=== PATIENT | female | born 1935 | race Caucasian/White ===

== ENCOUNTER 2017-06-18 09:35 | Inpatient (IN) | payer MEDICARE, OTHER ==
[2017-06-18] VITALS (38 sets, daily range): BP systolic 113–176; BP diastolic 40–85; PULSE 44–94; RESP 13–23; Ht 147.3 cm; Wt 49.5 kg
[~2017-06-18] VITALS: Ht 147.3 cm; Wt 49.5 kg
[2017-06-18 09:52] LABS: BASOPHILS % 0.3 % (0.0-2.0); EOSINOPHILS # 0.1 10^3/ul (0.0-0.5); HEMOGLOBIN 10.8 g/dl (12.0-16.0); LYMPHOCYTES # 1.2 10^3/ul (0.8-2.9); LYMPHOCYTES % 16.2 % (15.0-51.0); MEAN CORPUSCULAR HEMOGLOBIN 33.1 pg (29.0-33.0); MEAN CORPUSCULAR HGB CONC 31.8 g/dl (32.0-37.0); MEAN CORPUSCULAR VOLUME 104.3 fl (82.0-101.0); MEAN PLATELET VOLUME 9.4 fl (7.4-10.4); MONOCYTE # 0.5 10^3/ul (0.3-0.9); MONOCYTES % 7.1 % (0.0-11.0); NEUTROPHIL # 5.4 10^3/ul (1.6-7.5); NEUTROPHILS % 75.1 % (39.0-77.0); PLATELET COUNT 266 10^3/UL (140-415); RED BLOOD COUNT 3.26 10^6/ul (4.20-5.40); RED CELL DISTRIBUTION WIDTH 13.9 % (11.5-14.5); WHITE BLOOD COUNT 7.2 10^3/ul (4.8-10.8)
[2017-06-18] MEDS ORDERED: IODIXANOL LOCM 100 ML BTL ONE (09:54)
[2017-06-18] MEDS ORDERED: SOD CHLORIDE 0.9% 100 ML ONE (09:54)
[2017-06-18] MEDS ORDERED: hydrALAzine 20 MG INJ IV ONE (10:00)
--- NOTE | 2017-06-18 10:00 | RADRPT ---
PROCEDURE: CT Brain. CLINICAL INDICATION: Stroke. TECHNIQUE: Multiple contiguous axial CT images of the brain were obtained without the administrati on of intravenous contrast. Coronal and sagittal reconstructions were also performed. DICOM images are available. CTDIvol (mGy): 43.04; Total Exam DLP (mGy-cm): 792.71. One or more of the following dose reduction techniques were utilized: - Automated exposure control. - Adjustment of the mA and/or kV according to patient size. - Use of iterative reconstruction technique. COMPARISON: None. FINDINGS: Age-related volume loss is observed. There is no mass effect or midline shift. There is a small 1.6 x 0.7 x 1.1 cm intraparenchymal hemorrhage within the left basal ganglia and internal capsule most compatible with a small hemorrhagic stroke. The mancuso-white matter differentiation is otherwise pres erved. Mild moderate periventricular hypoattenuation is present and favorable for sequelae of small vessel ischemic changes. The posterior fossa is unremarkable. Intracranial vascular calcifications a re observed. The paranasal sinuses and mastoid air cells are clear. The calvarium is intact. Extracalvarial sof t tissues are unremarkable. IMPRESSION: Small hemorrhagic stroke of the left basal ganglia/internal capsule. Age-related volume loss and small vessel ischemic changes. Critical results: Imaging findings discussed with Dr. Isbell at 0956 hours. RPTAT: HLST .Nabila Lopez MD, MD Date Time Electronically viewed and signed by .Nabila Lopez MD, MD on 06/18/2017 10:00 .T/
[2017-06-18 10:11] LABS: ALBUMIN 2.2 g/dl (3.3-4.9); ALBUMIN/GLOBULIN RATIO 0.66; BILIRUBIN,INDIRECT 0.2 mg/dl (0-1.1); BILIRUBIN,TOTAL 0.2 mg/dl (0.2-1.3); CALCIUM 8.2 mg/dl (8.4-10.2); CREATININE 1.19 mg/dl (0.44-1.00); POTASSIUM 4.6 mmol/L (3.5-5.1); TOTAL PROTEIN 5.5 g/dl (6.1-8.1)
--- NOTE | 2017-06-18 10:15 | STROKE ---
Date/Time of Note Date/Time of Note DATE: 06/18/17 TIME: 12:14 Patient Information General Arrival Date Age 81 Gender female Weight 50 kg Vital Signs Vital Signs Vital Signs Date Time Temp Pulse Resp B/P Pulse Ox O2 Delivery O2 Flow Rate FiO2 06/18/17 10:12 77 17 165/68 100 Room Air Labs Hematology Labs Hematology Test 06/18/17 09:40 White Blood Count 7.210^3/ul (4.8-10.8) Red Blood Count 3.2610^6/ul (4.20-5.40) Hemoglobin 10.8g/dl (12.0-16.0) Hematocrit 34.0% (37.0-47.0) Mean Corpuscular Volume 104.3fl (82.0-101.0) Mean Corpuscular Hemoglobin 33.1pg (29.0-33.0) Mean Corpuscular Hemoglobin Concent 31.8g/dl (32.0-37.0) Red Cell Distribution Width 13.9% (11.5-14.5) Platelet Count 04148^3/UL (140-415) Mean Platelet Volume 9.4fl (7.4-10.4) Neutrophils % 75.1% (39.0-77.0) Lymphocytes % 16.2% (15.0-51.0) Monocytes % 7.1% (0.0-11.0) Eosinophils % 1.0% (0.0-7.0) Basophils % 0.3% (0.0-2.0) Nucleated Red Blood Cells % 0.0/100WBC (0.0-0.0) Neutrophils # 5.410^3/ul (1.6-7.5) Lymphocytes # 1.210^3/ul (0.8-2.9) Monocytes # 0.510^3/ul (0.3-0.9) Eosinophils # 0.110^3/ul (0.0-0.5) Basophils # 0.010^3/ul (0.0-0.1) Nucleated Red Blood Cells # 0.010^3/ul (0.0-0.0) Chemistry Labs Chemistry Test 06/18/17 09:40 Sodium Level 142mmol/L (135-144) Potassium Level 4.6mmol/L (3.5-5.1) Chloride Level 114mmol/L (97-110) Carbon Dioxide Level 25mmol/L (21-31) Anion Gap 8 (8-16) Blood Urea Nitrogen 32mg/dl (7-20) Creatinine 1.19mg/dl (0.44-1.00) Glucose Level 94mg/dl (70-220) Calcium Level 8.2mg/dl (8.4-10.2) Total Bilirubin 0.2mg/dl (0.2-1.3) Direct Bilirubin 0.00mg/dl (0.00-0.20) Indirect Bilirubin 0.2mg/dl (0-1.1) Aspartate Amino Transf (AST/SGOT) 20IU/L (15-46) Alanine Aminotransferase (ALT/SGPT) 27IU/L (13-69) Alkaline Phosphatase 163IU/L (42-121) Creatine Kinase 101IU/L (23-200) Total Protein 5.5g/dl (6.1-8.1) Albumin 2.2g/dl (3.3-4.9) Globulin 3.30g/dl (1.3-3.2) Albumin/Globulin Ratio 0.66 Triglycerides Level 103mg/dl (0-149) Cholesterol Level 94mg/dl (100-200) LDL Cholesterol, Calculated 28mg/dl HDL Cholesterol 45mg/dl (33-92) Cholesterol/HDL Ratio 2.0RATIO History & Physical History of Present Illness 81 W LKW 0750 PST PMH ESRD, HTN with weakness and slurred speech that daughter noticed at 0750 PST. In ED noted to have R hemiparesis and dysarthria. NCHCT showing small L BG IPH. NIH Stroke Scale NIH Stroke Scale Date/Time Recorded DATE: 06/18/17 TIME: 12:14 Submitted By Yash Coon t-PA Imaging Review Date/Time Imaging Reviewed DATE: 06/18/17 TIME: 12:14 t-PA Administration Weight 50 kg Recommedation submitted by Yash Coon Recommendations Impression Diagnosis 81 YO W with acute L basal ganglia IPH. I updated her daughter Romelia at bedside and informed her that NS will be consulted. Recommendation - Agree with NS consultation for acute IPH - Agree with acute goal SBP 140 YASH COON MD Jun 18, 2017 10:15
--- NOTE | 2017-06-18 10:20 | RADRPT ---
PROCEDURE: Chest x-ray CLINICAL INDICATION: Stroke TECHNIQUE: Chest single view COMPARISON: None FINDINGS: There is mild cardiomegaly and moderate atherosclerotic aortic calcification. Mild interstitial vasc ular congestion seen. No confluent pneumonias identified. Costophrenic angles are sharp. IMPRESSION: 1. Cardiomegaly with mild interstitial CHF. 2. Atherosclerotic aortic calcification RPTAT: HH .Gonsalo Peres MD, MD Date Time Electronically viewed and signed by .Gonsalo Peres MD, on 06/18/2017 10:20 .W/
[2017-06-18 10:21] LABS: CK-MB 1.61 ng/ml (0.0-2.4); TROPONIN-I 0.034 ng/ml (0.00-0.12)
[2017-06-18 10:22] LABS: INR 1.07; PROTIME 13.9 Sec (12.2-14.2); PT RATIO 1.1
[2017-06-18 10:23] LABS: PARTIAL THROMBOPLASTIN TIME 34.9 Sec (25.0-35.0)
--- NOTE | 2017-06-18 10:25 | RADRPT ---
PROCEDURE: CTA BRAIN WITH CONTRAST, CTA NECK WITH CONTRAST CLINICAL INDICATION: Neurologic deficit, Stroke COMPARISON: Correlation head CT earlier today TECHNIQUE: Helical axial images were obtained through the neck and head with contrast. Oblique sagittal MIP pat ges were obtained through the neck, and coronal and sagittal MIP images were obtained through the br ain. Additional 3D volumetric renderings were created. 100 cc of Isovue 370 was administered intra venously without reported complication. One or more of the following dose reduction techniques were used: Automated exposure control, Adjustment of the mA and/or kV according to patient size, and/or u se of iterative reconstruction technique. DICOM images are available. DOSE: CTDI = 18/11mGy and the DLP = 421mGy-cm. FINDINGS: CTA OF THE BRAIN: No evidence of a significant stenosis of the bilateral ICA, KATHE, MCA, or CAKE TESTER vesse ls. The bilateral vertebral and basilar arteries are without significant stenosis or occlusion. Left vertebral artery is hypoplastic. 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 2 x 2 mm posterior projecting aneurysm from the supraclinoid left internal carotid artery. Left lentiform nucleus parenchymal hemorrhage again noted. CTA OF THE NECK: No evidence of a hemodynamically-significant stenosis or vessel dissection of the b ilateral common carotid, bilateral internal carotid, or bilateral vertebral arteries. Right vertebra l artery is dominant. Degenerative changes of the spine. IMPRESSION: CTA HEAD: Patent intracranial arteries. No large vessel occlusion identified. 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 2 x 2 mm posterior projecting aneurysm from the supraclinoid left internal carotid artery. Left lentiform nucleus parenchymal hemorrhage again noted. CTA NECK: Patent major cervical arteries. No significant internal carotid arterial stenosis by NASCET criteria. RPTAT: AA .Darion Rodriguez MD, MD Date Time Electronically viewed and signed by .Darion Rodriguez MD, MD on 06/18/2017 10:25 .T/
[2017-06-18] MEDS ORDERED: DICY10CA60 PO (10:37)
[2017-06-18] MEDS ORDERED: CLON1PAT2 TD (10:38)
[2017-06-18] MEDS ORDERED: ENAL20TA PO (10:38)
[2017-06-18] MEDS ORDERED: POTA-57 PO (10:40)
[2017-06-18] MEDS ORDERED: OMEP20CA16 PO (10:40)
[2017-06-18] MEDS ORDERED: FURO20TA3 PO (10:40)
[2017-06-18] MEDS ORDERED: SIMV40TA2 PO (10:41)
[2017-06-18] MEDS ORDERED: LORA10TA3 PO (10:41)
[2017-06-18] MEDS ORDERED: TYL500 PO (10:41)
[2017-06-18] MEDS ORDERED: CYAN100 PO (10:42)
[2017-06-18] MEDS ORDERED: CARV12.579 PO (10:42)
[2017-06-18] MEDS ORDERED: AMLO5TAB4 PO (10:42)
[2017-06-18] MEDS ORDERED: FER325 PO (10:42)
[2017-06-18] MEDS ORDERED: EPOE10002 IJ (10:43)
--- NOTE | 2017-06-18 11:15 | RADRPT ---
PROCEDURE: CTA BRAIN WITH CONTRAST, CTA NECK WITH CONTRAST CLINICAL INDICATION: Neurologic deficit, Stroke COMPARISON: Correlation head CT earlier today TECHNIQUE: Helical axial images were obtained through the neck and head with contrast. Oblique sagittal MIP pat ges were obtained through the neck, and coronal and sagittal MIP images were obtained through the br ain. Additional 3D volumetric renderings were created. 100 cc of Isovue 370 was administered intrave nously without reported complication. One or more of the following dose reduction techniques were us ed: Automated exposure control, Adjustment of the mA and/or kV according to patient size, and/or use of iterative reconstruction technique. DICOM images are available. DOSE: CTDI = 18/11mGy and the DLP = 421mGy-cm. FINDINGS: CTA OF THE BRAIN: No evidence of a significant stenosis of the bilateral ICA, KATHE, MCA, or TANK[employer] WORKER vesse ls. The bilateral vertebral and basilar arteries are without significant stenosis or occlusion. Left vertebral artery is hypoplastic. 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 2 x 2 mm posterior projecting aneurysm from the supraclinoid left internal carotid artery. Left lentiform nucleus parenchymal hemorrhage again noted. CTA OF THE NECK: No evidence of a hemodynamically-significant stenosis or vessel dissection of the b ilateral common carotid, bilateral internal carotid, or bilateral vertebral arteries. Right vertebra l artery is dominant. Degenerative changes of the spine. IMPRESSION: CTA HEAD: Patent intracranial arteries. No large vessel occlusion identified. 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 2 x 2 mm posterior projecting aneurysm from the supraclinoid left internal carotid artery. Left lentiform nucleus parenchymal hemorrhage again noted. CTA NECK: Patent major cervical arteries. No significant internal carotid arterial stenosis by NASCET criteria. RPTAT: AA .Darion Rodriguez MD, MD Date Time Electronically viewed and signed by .Darion Rodriguez MD, MD on 06/18/2017 11:14 .T/
--- NOTE | 2017-06-18 11:28 | ERD ---
ER Documentation Chief Complaint Chief Complaint BIB RA FOR EVAL OF RT SIDED WEAKNESS AND SLURRED SPEECH @ 0750 HPI History obtained from patient's daughter as patient is unable to give a detailed history secondary to her clinical condition at this time. This is an 81-year-old female who presents to the emergency room after being brought in by ambulance for evaluation of right-sided weakness and slurred speech. According to the patient's daughter this patient started having slurred speech around 7: 15 AM this morning. She states that she called her mother and noted that she has slurred speech. She states that she was with her mother 1 hour previously and noted that she was acting normally. This patient does have a history of hypertension, hyperlipidemia. Daughter states that she noticed a droop on the right side of the patient's face. The patient was brought in for further evaluation. ROS All systems reviewed and are negative except as per history of present illness. Medications Home Meds Reported Medications Epoetin Chito (Procrit) 10,000 Unit/1 Ml Vial, 99390 UNIT IJ WEEKLY, VIAL 06/18/17 Ferrous Sulfate* (Ferrous Sulfate*) 325 Mg Tabec, 325 MG PO BID, TAB 06/18/17 Amlodipine Besylate* (Norvasc*) 5 Mg Tablet, 5 MG PO DAILY, TAB 06/18/17 Carvedilol* (Carvedilol*) 12.5 Mg Tablet, 12.5 MG PO BID, #60 TAB 06/18/17 Cyanocobalamin* (Vitamin B12*) 100 Mcg Tab, 100 MCG PO DAILY, TAB 06/18/17 Simvastatin* (Zocor*) 40 Mg Tablet, 40 MG PO QHS, #30 TAB 06/18/17 Acetaminophen* (Tylenol*) 500 Mg Tab, 500 MG PO Q4H Y for MILD PAIN LEVEL 1-3, TAB 06/18/17 Loratadine* (Loratadine*) 10 Mg Tablet, 10 MG PO DAILY, #30 TAB 06/18/17 Omeprazole* (Omeprazole*) 20 Mg Capsule.dr, 20 MG PO AC BREAKFAST, #30 CAP 06/18/17 Furosemide* (Furosemide*) 20 Mg Tablet, 20 MG PO DAILY Y for LEG SWELLING, #60 TAB 06/18/17 Potassium Chloride* (Klor-Con*) 20 Meq Tabsr, 10 MEQ PO DAILY Y for SWELLING OF LEGS, TAB.SA 06/18/17 Enalapril Maleate* (Enalapril Maleate*) 20 Mg Tablet, 20 MG PO BID, TAB HOLD FOR SBP LESS THAN 110 AND PULSE RATE LESS THAN 52 06/18/17 Clonidine Patch (CLONIDINE PATCH) 0.2 Mg/24 Hr Patch, 1 PATCH.WK TD Q7D, #4 PATCH.WK 06/18/17 Dicyclomine Hcl* (Bentyl*) 10 Mg Capsule, 20 MG PO BID, CAP 06/18/17 Allergies Allergies: Coded Allergies: No Known Allergy (Unverified , 06/18/17) PMhx/Soc History of Surgery: Yes (EYE SURGERY , GALL BLADDER , MAC DEGENERATION ) Hx Cardiac Disorders: Yes (HTN , CHOLESTEROL ) Hx Miscellaneous Medical Probl: Yes (ANEMIA, GERD , CKD) Hx Alcohol Use: No Hx Substance Use: No Smoking Status: Never smoker Physical Exam Vitals Vital Signs Date Time Temp Pulse Resp B/P Pulse Ox O2 Delivery O2 Flow Rate FiO2 06/18/17 10:56 81 17 159/59 97 Room Air 06/18/17 10:43 83 18 161/59 99 Room Air 06/18/17 10:14 156/71 06/18/17 10:12 77 17 165/68 100 Room Air 06/18/17 09:50 82 17 150/121 99 Room Air 06/18/17 09:35 79 16 189/141 99 Physical Exam INITIAL VITAL SIGNS: Reviewed by me GENERAL: The patient is well developed and appropriate for usual state of health in no apparent distress HEENT: Pupils equal, round, and reactive to light. EOMI. There is no scleral icterus. NECK: C-spine is soft and supple, there is no meningismus. There is no cervical lymphadenopathy. LUNGS: Clear to auscultation bilaterally. There are no rales, wheezes or rhonchi. HEART: Regular rate and rhythm, no murmurs, clicks, rubs or gallops. ABDOMEN: Soft, non-tender, non-distended. There are bowel sounds in all four quadrants. No rebound or guarding. EXTREMITIES: There is no peripheral cyanosis or edema. No focal swelling or erythema. NEUROLOGICAL: Right-sided facial droop, right upper extremity 2 out of 5 strength, left upper extremity 5 out of 5 strength, right lower extremity 3 out of 5 strength, left lower extremity 5 out of 5 strength, positive slurred speech SKIN: There is no apparent rash or petechiae. HEME/LYMPHATIC: There is no evidence of excessive bruising or lymphedema. PSYCHIATRIC: The patient does not appear anxious or depressed. Result Diagram: 06/18/1740 06/18/1740 Results 24 hrs Laboratory Tests Test 06/18/17 09:40 White Blood Count 7.210^3/ul Red Blood Count 3.2610^6/ul Hemoglobin 10.8g/dl Hematocrit 34.0% Mean Corpuscular Volume 104.3fl Mean Corpuscular Hemoglobin 33.1pg Mean Corpuscular Hemoglobin Concent 31.8g/dl Red Cell Distribution Width 13.9% Platelet Count 82511^3/UL Mean Platelet Volume 9.4fl Neutrophils % 75.1% Lymphocytes % 16.2% Monocytes % 7.1% Eosinophils % 1.0% Basophils % 0.3% Nucleated Red Blood Cells % 0.0/100WBC Neutrophils # 5.410^3/ul Lymphocytes # 1.210^3/ul Monocytes # 0.510^3/ul Eosinophils # 0.110^3/ul Basophils # 0.010^3/ul Nucleated Red Blood Cells # 0.010^3/ul Prothrombin Time 13.9Sec Prothrombin Time Ratio 1.1 INR International Normalized Ratio 1.07 Activated Partial Thromboplast Time 34.9Sec Sodium Level 142mmol/L Potassium Level 4.6mmol/L Chloride Level 114mmol/L Carbon Dioxide Level 25mmol/L Anion Gap 8 Blood Urea Nitrogen 32mg/dl Creatinine 1.19mg/dl Glucose Level 94mg/dl Hemoglobin A1c 4.5% Calcium Level 8.2mg/dl Total Bilirubin 0.2mg/dl Direct Bilirubin 0.00mg/dl Indirect Bilirubin 0.2mg/dl Aspartate Amino Transf (AST/SGOT) 20IU/L Alanine Aminotransferase (ALT/SGPT) 27IU/L Alkaline Phosphatase 163IU/L Creatine Kinase 101IU/L Creatine Kinase Index 1.6 Creatinine Kinase MB (Mass) 1.61ng/ml Troponin I 0.034ng/ml Total Protein 5.5g/dl Albumin 2.2g/dl Globulin 3.30g/dl Albumin/Globulin Ratio 0.66 Triglycerides Level 103mg/dl Cholesterol Level 94mg/dl LDL Cholesterol, Calculated 28mg/dl HDL Cholesterol 45mg/dl Cholesterol/HDL Ratio 2.0RATIO Current Medications Medications (Trade) Dose Ordered Sig/Pavan Route PRN Reason Start Time Stop Time Status Last Admin Dose Admin IV Flush 10 ml 10 ml STK-MED ONCE .ROUTE 06/18/17 09:54 06/18/17 09:55 DC 06/18/17 10:03 Sodium Chloride (NS) 100 ml @ ud STK-MED ONCE .ROUTE 06/18/17 09:54 06/18/17 09:55 DC 06/18/17 10:04 Iodixanol (Visipaque Locm) 100 ml STK-MED ONCE .ROUTE 06/18/17 09:54 06/18/17 09:55 DC 06/18/17 10:03 Hydralazine HCl 10 mg 10 mg ONCE ONCE IV 06/18/17 10:00 06/18/17 10:01 DC 06/18/17 10:25 Sodium Chloride (NS) 1,000 ml @ 60 mls/hr [id number] IV 06/18/17 11:30 Hydralazine HCl (Apresoline) 10 mg Q6H PRN IV sbp>140mmhg 06/18/17 11:30 Ondansetron HCl (Zofran Inj) 4 mg Q6H PRN IV NAUSEA AND/OR VOMITING 06/18/17 11:30 Morphine Sulfate (morphine) 2 mg Q4H PRN IV pain 06/18/17 11:30 Famotidine (Pepcid Iv) 20 mg DAILY IV 06/19/17 09:00 Procedures/MDM EKG: Rate/Rhythm: [Normal Sinus Rhythm] QRS, ST, T-waves: [No changes consistent w/ acute ischemia] Impression: [No evidence of ischemia or arrhythmia] Chest X-ray 1V Interpreted by me: Soft Tissue: No acute abnormalities Bones: No acute abnormalities Mediastinum/Cardiac Silhouette/Lungs: [No acute abnormalities] CT brain without: Small hemorrhagic stroke of the left basal ganglia/internal capsule. Age-related volume loss and small vessel ischemic changes. CTA neck and brain:CTA HEAD: Patent intracranial arteries. No large vessel occlusion identified. 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 2 x 2 mm posterior projecting aneurysm from the supraclinoid left internal carotid artery. Left lentiform nucleus parenchymal hemorrhage again noted. CTA NECK: Patent major cervical arteries. No significant internal carotid arterial stenosis by NASCET criteria. This 81-year-old female presents to the ER for evaluation of altered mental status, slurred speech and right-sided weakness. This patient was in a timeframe to receive TPA and a code stroke was called. This patient went to CT and was found to have a hemorrhagic stroke. I did order a CT angiography of the brain and patella neurology who agrees this patient is not a TPA candidate. I did contact neurosurgery director of personnel, Dr. Gray. He agrees to evaluate this patient. This patient did have a blood pressure with a systolic greater than 180. He did recommend a systolic blood pressure control less than 160. This patient did get 10 mg of hydralazine. Her blood pressure is controlled at this time at 142/74. This patient will be placed in for admission at this time for repeat CT of the brain to rule out any expanding bleeding. This patient in this patient's family are aware of her condition. She will be placed in the intensive care unit at this time under the care of Dr. Owens. This patient presented to the emergency room at 0936 Code stroke was called at 0937 Spoke with tele- neurology at [address] Gray 1020 Critical Care: Excluding all billable procedures Time: 48 minutes Treatments/Evaluations: Close monitoring and treatment of unstable vital signs, cardiorespiratory, and neurologic status, while maintaining tight balance of fluid, respiratory, and cardiac interventions. Departure Diagnosis: Primary Impression: Hemorrhagic stroke Additional Impressions: Acute weakness Macrocytic anemia Renal insufficiency Hypertension, uncontrolled Condition: Serious RASHAD HURLEY DO Jun 18, 2017 11:28
[2017-06-18] MEDS ORDERED: morphine 2 MG INJ IV PRN (11:30)
[2017-06-18] MEDS ORDERED: ONDANSETRON 4 MG INJ IV PRN (11:30)
[2017-06-18] MEDS ORDERED: niCARdipine-NS 0.1MG/ML DRIP 200 ML IV SCH ×2 (13:30→16:00)
[2017-06-18] MEDS: hydrALAzine 20 MG INJ IV PRN (13:46)
[2017-06-18] MEDS: SOD CHLORIDE 0.9% 1,000 ML IV SCH (13:46)
[2017-06-18] MEDS ORDERED: FUROSEMIDE 20 MG INJ IV ONE (15:00)
[2017-06-18 15:02] LABS: ADD UMIC YES; UR ASCORBIC ACID NEGATIVE (NEGATIVE); UR BILIRUBIN (Dip) NEGATIVE (NEGATIVE); UR BLOOD (Dip) 1+ mg/dL (NEGATIVE); UR CLARITY CLEAR (CLEAR); UR COLOR YELLOW (YELLOW); UR GLUCOSE (Dip) NEGATIVE (NEGATIVE); UR KETONES (Dip) NEGATIVE (NEGATIVE); UR LEUKOCYTE ESTERASE (Dip) NEGATIVE Leu/ul (NEGATIVE); UR NITRITE (Dip) NEGATIVE (NEGATIVE); UR RBC 4 /HPF (0-5); UR SPECIFIC GRAVITY (Dip) 1.042 (1.003-1.030); UR TOTAL PROTEIN (Dip) 3+ mg/dl (NEGATIVE); UR UROBILINOGEN (Dip) NEGATIVE (NEGATIVE)
--- NOTE | 2017-06-18 15:03 | HP ---
Date/Time of Note Date/Time of Note DATE: 06/18/17 TIME: 14:42 Assessment/Plan VTE Prophylaxis VTE Prophylaxis Intervention: SCD's VTE Contraindication Reason: hemorrhagic cerebral infarction Lines/Catheters IV [facility]ter Type (from [facility]): Saline Lock Urinary Cath still in place: No Assessment/Plan Assessment/Plan 81 yo F with 1. Acute left hemorrhagic basal ganglia CVA 2. Hypertension with suboptimal control [hypertensive emergency] 3. History of dyslipidemia PLAN: Patient admitted to intensive care unit for close monitoring and management Strict blood pressure monitoring with goal systolic blood pressure of 140 or less Neurosurgical as well as neurology consultations have been obtained. We discussed aneurysms seen on CTA of the head with neurosurgery and these are thought to be incidental findings which is recommended to follow-up outpatient with interventional neurologist/neurosurgeon. N.p.o. for now until speech therapy evaluation Close ICU monitoring and supportive care Further interventions per clinical course Clinical care time greater than 1 hour. HPI/ROS Admit Date/Time Admit Date/Time Jun 18, 2017 at 11:05 Hx of Present Illness This is an 81-year-old female who was brought into the emergency room today via ambulance because of new onset right-sided weakness and slurred speech as well as deviation of the angle of her mouth to the right. Periparotid the patient started having symptoms at about 715 this morning and prior to an hour prior to that patient was said to have been normal. Emergency room evaluation revealed the presence of a left basal ganglia hemorrhagic stroke on CT scan of the brain and the patient is being admitted to the intensive care unit for further monitoring and management. No other history is unobtainable at this time because of the patient's slurred speech and mild aphasia. ROS unable to obtain d/t patient's condition. PMH/Family/Social Past Medical History * HTN * HLD Past Surgical History Past Surgical Hx: cholecystectomy Family History Significant Family History: other (unknown) Social History Smoking Status: Former smoker Exam/Review of Systems Vital Signs Vitals Vital Signs Date Time Temp Pulse Resp B/P Pulse Ox O2 Delivery O2 Flow Rate FiO2 06/18/17 13:00 84 06/18/17 12:15 13 129/54 100 Room Air Exam Constitutional: alert, No distress Head: normocephalic Eyes: PERRL, No icteric ENMT: mucosa pink and moist, No intubated Neck: supple Respiratory: clear to auscultation, diminished breath sounds Cardiovascular: nl pulses, regular rate and rhythm, No murmurs/extra sounds Gastrointestinal: bowel sounds, non-tender, soft Neurological: No confused, No focal weakness, No nl speech Skin: No rash or lesions Labs Result Diagram: 06/18/17 0940 06/18/17 0940 Medications Medications Current Medications Sodium Chloride (NS) 1,000 ml @ 60 mls/hr [id number] IV Last administered on 13:46; Admin Dose 60 MLS/HR; Start 06/18/17 at 11:30 Hydralazine HCl (Apresoline) 10 mg Q6H PRN IV sbp>140mmhg Last administered on 06/18/17 13:46; Admin Dose 10 MG; Start 06/18/17 at 11:30 Ondansetron HCl (Zofran Inj) 4 mg Q6H PRN IV NAUSEA AND/OR VOMITING; Start at 11:30 Morphine Sulfate (morphine) 2 mg Q4H PRN IV pain; Start 06/18/17 at 11:30 Famotidine 20 mg 20 mg DAILY IV ; Start 06/19/17 at 09:00 Nicardipine HCl (Cardene Iv) 200 ml @ 50 mls/hr TITRATE IV ; Start 06/18/17 at 13:30 Procedures Procedures PROCEDURE: Chest x-ray CLINICAL INDICATION: Stroke TECHNIQUE: Chest single view COMPARISON: None FINDINGS: There is mild cardiomegaly and moderate atherosclerotic aortic calcification. Mild interstitial vascular congestion seen. No confluent pneumonias identified. Costophrenic angles are sharp. IMPRESSION: 1. Cardiomegaly with mild interstitial CHF. 2. Atherosclerotic aortic calcification RPTAT: HH .Gonsalo Peres MD, MD Date Time Electronically viewed and signed by .Gonsalo Peres MD, MD on 06/18/2017 10:20 .W/ CC: RASHAD HURLEY DO PROCEDURE: CT Brain. CLINICAL INDICATION: Stroke. TECHNIQUE: Multiple contiguous axial CT images of the brain were obtained without the administration of intravenous contrast. Coronal and sagittal reconstructions were also performed. DICOM images are available. CTDIvol (mGy) : 43.04; Total Exam DLP (mGy-cm): 792.71. One or more of the following dose reduction techniques were utilized: - Automated exposure control. - Adjustment of the mA and/or kV according to patient size. - Use of iterative reconstruction technique. COMPARISON: None. FINDINGS: Age-related volume loss is observed. There is no mass effect or midline shift. There is a small 1.6 x 0.7 x 1.1 cm intraparenchymal hemorrhage within the left basal ganglia and internal capsule most compatible with a small hemorrhagic stroke. The mancuso-white matter differentiation is otherwise preserved. Mild moderate periventricular hypoattenuation is present and favorable for sequelae of small vessel ischemic changes. The posterior fossa is unremarkable. Intracranial vascular calcifications are observed. The paranasal sinuses and mastoid air cells are clear. The calvarium is intact. Extracalvarial soft tissues are unremarkable. IMPRESSION: Small hemorrhagic stroke of the left basal ganglia/internal capsule. Age-related volume loss and small vessel ischemic changes. Critical results: Imaging findings discussed with Dr. Hurley at 0956 hours. RPTAT: HLST .Nabila Lopez MD, Date Time Electronically viewed and signed by .Nabila Lopez MD, MD on 06/18/2017 10:00 .T/ CC: RASHAD HURLEY DO PROCEDURE: CTA BRAIN WITH CONTRAST, CTA NECK WITH CONTRAST CLINICAL INDICATION: Neurologic deficit, Stroke COMPARISON: Correlation head CT earlier today TECHNIQUE: Helical axial images were obtained through the neck and head with contrast. Oblique sagittal MIP images were obtained through the neck, and coronal and sagittal MIP images were obtained through the brain. Additional 3D volumetric renderings were created. 100 cc of Isovue 370 was administered intravenously without reported complication. One or more of the following dose reduction techniques were used: Automated exposure control, Adjustment of the mA and/or kV according to patient size, and/or use of iterative reconstruction technique. DICOM images are available. DOSE: CTDI = 18/11mGy and the DLP = 421mGy-cm. FINDINGS: CTA OF THE BRAIN: No evidence of a significant stenosis of the bilateral ICA, KATHE, MCA, or MEDICAL RECORDS SUPERVISOR vessels. The bilateral vertebral and basilar arteries are without significant stenosis or occlusion. Left vertebral artery is hypoplastic. 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 2 x 2 mm posterior projecting aneurysm from the supraclinoid left internal carotid artery. Left lentiform nucleus parenchymal hemorrhage again noted. CTA OF THE NECK: No evidence of a hemodynamically-significant stenosis or vessel dissection of the bilateral common carotid, bilateral internal carotid, or bilateral vertebral arteries. Right vertebral artery is dominant. Degenerative changes of the spine. IMPRESSION: CTA HEAD: Patent intracranial arteries. No large vessel occlusion identified. 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 2 x 2 mm posterior projecting aneurysm from the supraclinoid left internal carotid artery. Left lentiform nucleus parenchymal hemorrhage again noted. CTA NECK: Patent major cervical arteries. No significant internal carotid arterial stenosis by NASCET criteria. RPTAT: AA .Darion Rodriguez MD, MD Date Time Electronically viewed and signed by .Darion Rodriguez MD, MD on 06/18/2017 10:25 .Radha/ CLEM ORMANO Jun 18, 2017 15:00
[2017-06-18 15:58] LABS: BARBITURATES Negative (NEGATIVE); BENZODIAZEPINES Negative (NEGATIVE); CANNABINOIDS Negative (NEGATIVE); COCAINE Negative (NEGATIVE); OPIATES Negative (NEGATIVE)
--- NOTE | 2017-06-18 20:44 | RADRPT ---
PROCEDURE: CT Brain without contrast. CLINICAL INDICATION: Intraparenchymal hematoma, headache TECHNIQUE: Routine CT scan of the brain was performed on a high resolution multi detector scanner without intravenous contrast. One or more of the following dose reduction techniques were used: Auto mated exposure control; Adjustment of the mA and/or kV according to patient size; Use of iterative r econstruction technique. CTDI = 44 mGy. DLP = 630 mGy-cm. DICOM images are available. COMPARISON: No prior relevant examinations are available for comparison. FINDINGS: Hemorrhage: 14 mm acute intraparenchymal hematoma centered within the left lentiform nucleus is unch anged. No new areas of hemorrhage are seen. Acute ischemic changes: No evidence of acute ischemic changes. Mass effect: None. Parenchymal volume: Within normal limits for age. Ventricular system: Concordant with parenchymal volume. Chronic changes: There are multiple areas of low attenuation change within the supratentorial white matter most compatible with moderate chronic microvascular ischemic changes. Atherosclerotic calcifications of the cavernous portions of both internal carotid arteries are prese nt. Extracranial soft tissues: Unremarkable. Calvarium: No fractures. Paranasal sinuses: Visualized paranasal sinuses are clear. Mastoid air cells: Visualized mastoid air cells are clear. IMPRESSION: Unchanged 14 mm acute intraparenchymal hematoma within the left lentiform nucleus. No new areas of h emorrhage. Moderate chronic-appearing microvascular ischemic changes of the supratentorial white matter are unc hanged. RPTAT: AADD .Zack Young MD, MD Date Time Electronically viewed and signed by .Zack Young MD, on 06/18/2017 20:43 .B/
[2017-06-19] VITALS (35 sets, daily range): BP systolic 126–174; BP diastolic 53–117; PULSE 69–95; RESP 11–24
[2017-06-19] MEDS: hydrALAzine 20 MG INJ IV PRN ×3 (01:37→17:23)
[2017-06-19] MEDS: SOD CHLORIDE 0.9% 1,000 ML IV SCH (05:02)
[2017-06-19 05:42] LABS: BASOPHILS % 0.3 % (0.0-2.0); EOSINOPHILS # 0.1 10^3/ul (0.0-0.5); HEMATOCRIT 30.9 % (37.0-47.0); HEMOGLOBIN 9.8 g/dl (12.0-16.0); LYMPHOCYTES # 1.3 10^3/ul (0.8-2.9); LYMPHOCYTES % 21.3 % (15.0-51.0); MEAN CORPUSCULAR HEMOGLOBIN 32.9 pg (29.0-33.0); MEAN CORPUSCULAR HGB CONC 31.7 g/dl (32.0-37.0); MEAN CORPUSCULAR VOLUME 103.7 fl (82.0-101.0); MEAN PLATELET VOLUME 9.7 fl (7.4-10.4); MONOCYTE # 0.5 10^3/ul (0.3-0.9); MONOCYTES % 7.2 % (0.0-11.0); NEUTROPHIL # 4.3 10^3/ul (1.6-7.5); NEUTROPHILS % 69.9 % (39.0-77.0); PLATELET COUNT 249 10^3/UL (140-415); RED BLOOD COUNT 2.98 10^6/ul (4.20-5.40); RED CELL DISTRIBUTION WIDTH 14.1 % (11.5-14.5); WHITE BLOOD COUNT 6.2 10^3/ul (4.8-10.8)
[2017-06-19 06:12] LABS: INR 1.14; PROTIME 14.6 Sec (12.2-14.2); PT RATIO 1.1
[2017-06-19 06:13] LABS: PARTIAL THROMBOPLASTIN TIME 34.3 Sec (25.0-35.0)
[2017-06-19 06:28] LABS: ALBUMIN 1.8 g/dl (3.3-4.9); BILIRUBIN,INDIRECT 0.2 mg/dl (0-1.1); BILIRUBIN,TOTAL 0.2 mg/dl (0.2-1.3); CALCIUM 7.8 mg/dl (8.4-10.2); CHOL/HDL RATIO 2.2 RATIO; CREATININE 1.19 mg/dl (0.44-1.00); MAGNESIUM 1.8 mg/dl (1.7-2.5); POTASSIUM 3.2 mmol/L (3.5-5.1); TOTAL PROTEIN 4.8 g/dl (6.1-8.1)
[2017-06-19 06:42] LABS: THYROID STIMULATING HORMONE 8.86 MIU/L (0.465-4.680)
[2017-06-19] MEDS ORDERED: MAGNESIUM SULFATE 1 GM/D5W 100 ML IVPB ONE (07:30)
[2017-06-19] MEDS: FAMOTIDINE 20 MG INJ IV SCH (10:05)
--- NOTE | 2017-06-19 10:23 | PN ---
CLEM ROMANO 06/19/17 1023: Date/Time of Note Date/Time of Note DATE: 06/19/17 TIME: 10:14 Assessment/Plan Lines/Catheters IV Catheter Type (from [facility]rsg): Peripheral IV Urinary Cath still in place: Yes Reason Cath still needed: urinary retention Assessment/Plan Assessment/Plan 81 yo F with 1. 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 Hypertension with suboptimal control [hypertensive emergency]: resolved, now with good control 3. History of dyslipidemia 4. CKD : Stable 5. 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 PLAN: Continue ICU close monitoring and management Continue Strict blood pressure monitoring with goal systolic blood pressure of 140 or less Continue to follow Neurosurgical and neurology recs / ?seizure prophylaxis Close ICU monitoring and supportive care Further interventions per clinical course Plan downgrade for tomorrow if BP remains stable. Plan to d/c salazar as well tomorrow. Sp[place] with daughter and granddaughter in detail at bedside Subjective 24 Hr Interval Summary Free Text/Dictation Patient seen she's doing well Still with facial deviation Had some urinary retention overnight Exam/Review of Systems Vital Signs Vitals Vital Signs Date Time Temp Pulse Resp B/P Pulse Ox O2 Delivery O2 Flow Rate FiO2 06/19/17 08:00 85 06/19/17 06:00 19 139/65 97 Room Air 06/19/17 04:00 98.0 Intake and Output 06/18/17 06/18/17 06/19/17 15:00 23:00 07:00 Intake Total 120 ml 522 ml 420 ml Output Total 350 ml 750 ml 855 ml Balance -230 ml -228 ml -435 ml Exam vConstitutional: sleepy, but easily arousable No distress Head: normocephalic Eyes: PERRL, No icteric ENMT: mucosa pink and moist, No intubated Neck: supple Respiratory: clear to auscultation, diminished breath sounds Cardiovascular: nl pulses, regular rate and rhythm, No murmurs/extra sounds Gastrointestinal: bowel sounds, non-tender, soft Neurological: No confused, No focal weakness, No nl speech Skin: No rash or lesions Results Result Diagram: 06/19/17 0458 06/19/17 0457 Results 24 hrs Laboratory Tests Test 06/18/17 13:45 06/19/17 04:57 06/19/17 04:58 Urine Color YELLOW Urine Clarity CLEAR Urine pH 5.0 Urine Specific [place] 1.042 H Urine Ketones NEGATIVE Urine Nitrite NEGATIVE Urine Bilirubin NEGATIVE Urine Urobilinogen NEGATIVE Urine Leukocyte Esterase NEGATIVE Urine Microscopic RBC 4 Urine Microscopic WBC 3 Urine Hemoglobin 1+ H Urine Glucose NEGATIVE Urine Total Protein 3+ H Urine Opiates Screen Negative Urine Barbiturates Negative Urine Amphetamines Screen Negative Urine Benzodiazepines Screen Negative Urine Cocaine Screen Negative Urine Cannabinoids Negative Prothrombin Time 14.6 H Prothrombin Time Ratio 1.1 INR International Normalized Ratio 1.14 Activated Partial Thromboplast Time 34.3 Sodium Level 142 Potassium Level 3.2 L Chloride Level 115 H Carbon Dioxide Level 22 Anion Gap 8 Blood Urea Nitrogen 26 H Creatinine 1.19 H Glucose Level 78 Calcium Level 7.8 L Magnesium Level 1.8 Total Bilirubin 0.2 Direct Bilirubin 0.00 Indirect Bilirubin 0.2 Aspartate Amino Transf (AST/SGOT) 17 Alanine Aminotransferase (ALT/SGPT) 31 Alkaline Phosphatase 119 Total Protein 4.8 L Albumin 1.8 L Triglycerides Level 105 Cholesterol Level 87 L LDL Cholesterol, Calculated 28 HDL Cholesterol 38 Cholesterol/HDL Ratio 2.2 Thyroid Stimulating Hormone (TSH) 8.860 H White Blood Count 6.2 Red Blood Count 2.98 L Hemoglobin 9.8 L Hematocrit 30.9 L Mean Corpuscular Volume 103.7 H Mean Corpuscular Hemoglobin 32.9 Mean Corpuscular Hemoglobin Concent 31.7 L Red Cell Distribution Width 14.1 Platelet Count 249 Mean Platelet Volume 9.7 Neutrophils % 69.9 Lymphocytes % 21.3 Monocytes % 7.2 Eosinophils % 1.0 Basophils % 0.3 Nucleated Red Blood Cells % 0.0 Neutrophils # 4.3 Lymphocytes # 1.3 Monocytes # 0.5 Eosinophils # 0.1 Basophils # 0.0 Nucleated Red Blood Cells # 0.0 Medications Medications Current Medications Sodium Chloride (NS) 1,000 ml @ 60 mls/hr [id number] IV Last administered on 05:02; Admin Dose 60 MLS/HR; Start 06/18/17 at 11:30 Hydralazine HCl (Apresoline) 10 mg Q6H PRN IV sbp>140mmhg Last administered on 06/19/17 07:56; Admin Dose 10 MG; Start 06/18/17 at 11:30 Ondansetron HCl (Zofran Inj) 4 mg Q6H PRN IV NAUSEA AND/OR VOMITING; Start at 11:30 Morphine Sulfate (morphine) 2 mg Q4H PRN IV pain; Start 06/18/17 at 11:30 Famotidine 20 mg 20 mg DAILY IV Last administered on 06/19/17 10:05; Admin Dose 20 MG; Start 06/19/17 at 09:00 Potassium Chloride (KCl 40 MEQ/250 ML NS) 250 ml @ 62.5 mls/hr Q4H IVPB ; Start 06/19/17 at 07:30; Stop 06/19/17 at 15:29 Procedures Procedures PROCEDURE: CT Brain without contrast. CLINICAL INDICATION: Intraparenchymal hematoma, headache TECHNIQUE: Routine CT scan of the brain was performed on a high resolution multi detector scanner without intravenous contrast. One or more of the following dose reduction techniques were used: Automated exposure control; Adjustment of the mA and/or kV according to patient size; Use of iterative reconstruction technique. CTDI = 44 mGy. DLP = 630 mGy-cm. DICOM images are available. COMPARISON: No prior relevant examinations are available for comparison. FINDINGS: Hemorrhage: 14 mm acute intraparenchymal hematoma centered within the left lentiform nucleus is unchanged. No new areas of hemorrhage are seen. Acute ischemic changes: No evidence of acute ischemic changes. Mass effect: None. Parenchymal volume: Within normal limits for age. Ventricular system: Concordant with parenchymal volume. Chronic changes: There are multiple areas of low attenuation change within the supratentorial white matter most compatible with moderate chronic microvascular ischemic changes. Atherosclerotic calcifications of the cavernous portions of both internal carotid arteries are present. Extracranial soft tissues: Unremarkable. Calvarium: No fractures. Paranasal sinuses: Visualized paranasal sinuses are clear. Mastoid air cells: Visualized mastoid air cells are clear. IMPRESSION: Unchanged 14 mm acute intraparenchymal hematoma within the left lentiform nucleus. No new areas of hemorrhage. Moderate chronic-appearing microvascular ischemic changes of the supratentorial white matter are unchanged. RPTAT: AADD .Zack Young MD, MD Date Time Electronically viewed and signed by .Zack Young MD, MD on 06/18/2017 20:43 Speech therapy recs: REC: Pt begin puree/thin liquid diet; straws ok; meds whole as tolerated or crushed in puree. RN (Celina) confirmed and will input diet. ST to f/u for further training in OME for slurred speech and weakness and assessment. SHANILAKESHA 06/19/17 1625: Assessment/Plan VTE Prophylaxis VTE Prophylaxis Intervention: SCD's VTE Contraindication Reason: hemorrhagic cerebral infarction Assessment/Plan Assessment/Plan 81 yo F with 1. 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 Hypertension with suboptimal control [hypertensive emergency]: resolved, now with good control 3. History of dyslipidemia 4. CKD : Stable 5. 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 PLAN: Continue ICU close monitoring and management Continue Strict blood pressure monitoring with goal systolic blood pressure of 140 or less Continue to follow Neurosurgical and neurology recs / ?seizure prophylaxis Close ICU monitoring and supportive care Further interventions per clinical course CC time >40mins Subjective 24 Hr Interval Summary Free Text/Dictation Patient seen she's doing well Still with facial deviation Exam/Review of Systems Exam Constitutional: sleepy, but easily arousable No distress Head: normocephalic Eyes: PERRL, No icteric ENMT: mucosa pink and moist, No intubated Neck: supple Respiratory: clear to auscultation, diminished breath sounds Cardiovascular: nl pulses, regular rate and rhythm, No murmurs/extra sounds Gastrointestinal: bowel sounds, non-tender, soft Neurological: No confused, No focal weakness, No nl speech Skin: No rash or lesions Results Result Diagram: 06/19/17 0458 06/19/17 0457 CLEM ROMANO Jun 19, 2017 10:23 LAKESHA MCLEOD Jun 19, 2017 16:25
[2017-06-19] MEDS: POTASSIUM CHLORIDE 250 ML IVPB SCH ×2 (10:24→11:30)
[2017-06-19] MEDS ORDERED: POTASSIUM CHLORIDE 250 ML IVPB ONE (10:30)
--- NOTE | 2017-06-19 12:20 | CONS ---
Date/Time of Note Date/Time of Note DATE: 06/19/17 TIME: 12:14 Assessment/Plan Assessment/Plan Chief Complaint/Hosp Course 81 yo female with HTN, HLD p/w acute 14 mm left basal ganglia hemorrhage admitted to ICU for closer monitoring. Recommend: avoid antiplatelets, NSAIDS SBP less than 140/90 intermodal dispatcher goal continue neuro checks per unit protocol incidental aneurysm does not require intervention at this time may monitor as outpatient LDL and HBA1C are at target avoid overly sedating medications, tylenol prn CERDA DVT ppx SCD PT/OT/Speech Problems: Consultation Date/Type/Reason Admit Date/Time Jun 18, 2017 at 11:05 Date of Consultation: Jun 19, 2017 Type of Consultation: Neurology Reason for Consultation basal ganglia ICH Referring Provider: CLEM ROMANO Hx of Present Illness 81 year old female history of HTN, HLD admitted with right sided facial droop and dysarthria, sx began yesterday 7:15 am. CTH shows 14 mm left basal ganglia hemorrhage, repeat imaging shows stability. She is admitted to the ICU for closer monitoring. CTA Head showed 2 incidental aneurysms 4 x 4 mm projecting off right supraclinoid ICA, 2 mm and 2mm in supraclinoid Left ICA. Family at bedside denies use of antiplatelet at home. . right facial Past Surgical History Past Surgical Hx: cholecystectomy Social History Smoking Status: Former smoker Exam/Review of Systems Vital Signs Vitals Vital Signs Date Time Temp Pulse Resp B/P Pulse Ox O2 Delivery O2 Flow Rate FiO2 06/19/17 12:00 97.7 82 18 153/69 95 Room Air Intake and Output 06/18/17 06/18/17 06/19/17 15:00 23:00 07:00 Intake Total 120 ml 522 ml 420 ml Output Total 350 ml 750 ml 855 ml Balance -230 ml -228 ml -435 ml Exam Constitutional: frail, oriented Neurological: DTR's symmetric, focal weakness (CN: GINGER gaze intact no preference, EOMI right facial dysarthria, Motor no focal weakness no drift), nl mental status Results Result Diagram: 06/19/17 0458 06/19/17 0457 Results 24 hrs Laboratory Tests Test 06/18/17 13:45 06/19/17 04:57 06/19/17 04:58 Urine Color YELLOW Urine Clarity CLEAR Urine pH 5.0 Urine Specific [place] 1.042 H Urine Ketones NEGATIVE Urine Nitrite NEGATIVE Urine Bilirubin NEGATIVE Urine Urobilinogen NEGATIVE Urine Leukocyte Esterase NEGATIVE Urine Microscopic RBC 4 Urine Microscopic WBC 3 Urine Hemoglobin 1+ H Urine Glucose NEGATIVE Urine Total Protein 3+ H Urine Opiates Screen Negative Urine Barbiturates Negative Urine Amphetamines Screen Negative Urine Benzodiazepines Screen Negative Urine Cocaine Screen Negative Urine Cannabinoids Negative Prothrombin Time 14.6 H Prothrombin Time Ratio 1.1 INR International Normalized Ratio 1.14 Activated Partial Thromboplast Time 34.3 Sodium Level 142 Potassium Level 3.2 L Chloride Level 115 H Carbon Dioxide Level 22 Anion Gap 8 Blood Urea Nitrogen 26 H Creatinine 1.19 H Glucose Level 78 Calcium Level 7.8 L Magnesium Level 1.8 Total Bilirubin 0.2 Direct Bilirubin 0.00 Indirect Bilirubin 0.2 Aspartate Amino Transf (AST/SGOT) 17 Alanine Aminotransferase (ALT/SGPT) 31 Alkaline Phosphatase 119 Total Protein 4.8 L Albumin 1.8 L Triglycerides Level 105 Cholesterol Level 87 L LDL Cholesterol, Calculated 28 HDL Cholesterol 38 Cholesterol/HDL Ratio 2.2 Thyroid Stimulating Hormone (TSH) 8.860 H White Blood Count 6.2 Red Blood Count 2.98 L Hemoglobin 9.8 L Hematocrit 30.9 L Mean Corpuscular Volume 103.7 H Mean Corpuscular Hemoglobin 32.9 Mean Corpuscular Hemoglobin Concent 31.7 L Red Cell Distribution Width 14.1 Platelet Count 249 Mean Platelet Volume 9.7 Neutrophils % 69.9 Lymphocytes % 21.3 Monocytes % 7.2 Eosinophils % 1.0 Basophils % 0.3 Nucleated Red Blood Cells % 0.0 Neutrophils # 4.3 Lymphocytes # 1.3 Monocytes # 0.5 Eosinophils # 0.1 Basophils # 0.0 Nucleated Red Blood Cells # 0.0 Medications Medications Current Medications Sodium Chloride (NS) 1,000 ml @ 60 mls/hr [id number] IV Last administered on 05:02; Admin Dose 60 MLS/HR; Start 06/18/17 at 11:30 Hydralazine HCl (Apresoline) 10 mg Q6H PRN IV sbp>140mmhg Last administered on 06/19/17 07:56; Admin Dose 10 MG; Start 06/18/17 at 11:30 Ondansetron HCl (Zofran Inj) 4 mg Q6H PRN IV NAUSEA AND/OR VOMITING; Start at 11:30 Morphine Sulfate (morphine) 2 mg Q4H PRN IV pain; Start 06/18/17 at 11:30 Famotidine 20 mg 20 mg DAILY IV Last administered on 06/19/17 10:05; Admin Dose 20 MG; Start 06/19/17 at 09:00 Potassium Chloride (KCl 40 MEQ/250 ML NS) 250 ml @ 62.5 mls/hr Q4H IVPB Last administered on 06/19/17 10:24; Admin Dose 62.5 MLS/HR; Start 06/19/17 at 07: 30; Stop 06/19/17 at 15:29 Carvedilol (Coreg) 12.5 mg BID PO ; Start 06/19/17 at 21:00 Enalapril Maleate (Vasotec) 20 mg DAILY PO ; Start 06/20/17 at 09:00 Atorvastatin Calcium (Lipitor) 20 mg DAILY@21 PO ; Start 06/19/17 at 21:00 JOAO SUAZO MD Jun 19, 2017 12:20
--- NOTE | 2017-06-19 16:28 | PN ---
Date/Time of Note Date/Time of Note DATE: 06/19/17 TIME: 16:28 Assessment/Plan Lines/Catheters IV Catheter Type (from [facility]): Peripheral IV Urinary Cath still in place: Yes Assessment/Plan Assessment/Plan 81 yo F with 1. 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 Hypertension with suboptimal control [hypertensive emergency]: resolved, now with good control 3. History of dyslipidemia 4. CKD : Stable 5. 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 PLAN: Continue ICU close monitoring and management Continue Strict blood pressure monitoring with goal systolic blood pressure of 140 or less Continue to follow Neurosurgical and neurology recs / ?seizure prophylaxis Close ICU monitoring and supportive care Further interventions per clinical course CC time >40mins Exam/Review of Systems Vital Signs Vitals Vital Signs Date Time Temp Pulse Resp B/P Pulse Ox O2 Delivery O2 Flow Rate FiO2 06/19/17 12:00 82 06/19/17 12:00 97.7 18 153/69 95 Room Air Intake and Output 06/18/17 06/18/17 06/19/17 15:00 23:00 07:00 Intake Total 120 ml 522 ml 420 ml Output Total 350 ml 750 ml 855 ml Balance -230 ml -228 ml -435 ml Results Result Diagram: 06/19/17 0458 06/19/17 0457 Results 24 hrs Laboratory Tests Test 06/19/17 04:57 06/19/17 04:58 Prothrombin Time 14.6 H Prothrombin Time Ratio 1.1 INR International Normalized Ratio 1.14 Activated Partial Thromboplast Time 34.3 Sodium Level 142 Potassium Level 3.2 L Chloride Level 115 H Carbon Dioxide Level 22 Anion Gap 8 Blood Urea Nitrogen 26 H Creatinine 1.19 H Glucose Level 78 Calcium Level 7.8 L Magnesium Level 1.8 Total Bilirubin 0.2 Direct Bilirubin 0.00 Indirect Bilirubin 0.2 Aspartate Amino Transf (AST/SGOT) 17 Alanine Aminotransferase (ALT/SGPT) 31 Alkaline Phosphatase 119 Total Protein 4.8 L Albumin 1.8 L Triglycerides Level 105 Cholesterol Level 87 L LDL Cholesterol, Calculated 28 HDL Cholesterol 38 Cholesterol/HDL Ratio 2.2 Thyroid Stimulating Hormone (TSH) 8.860 H White Blood Count 6.2 Red Blood Count 2.98 L Hemoglobin 9.8 L Hematocrit 30.9 L Mean Corpuscular Volume 103.7 H Mean Corpuscular Hemoglobin 32.9 Mean Corpuscular Hemoglobin Concent 31.7 L Red Cell Distribution Width 14.1 Platelet Count 249 Mean Platelet Volume 9.7 Neutrophils % 69.9 Lymphocytes % 21.3 Monocytes % 7.2 Eosinophils % 1.0 Basophils % 0.3 Nucleated Red Blood Cells % 0.0 Neutrophils # 4.3 Lymphocytes # 1.3 Monocytes # 0.5 Eosinophils # 0.1 Basophils # 0.0 Nucleated Red Blood Cells # 0.0 Medications Medications Current Medications Sodium Chloride (NS) 1,000 ml @ 60 mls/hr [id number] IV Last administered on 05:02; Admin Dose 60 MLS/HR; Start 06/18/17 at 11:30 Hydralazine HCl (Apresoline) 10 mg Q6H PRN IV sbp>140mmhg Last administered on 06/19/17 07:56; Admin Dose 10 MG; Start 06/18/17 at 11:30 Ondansetron HCl (Zofran Inj) 4 mg Q6H PRN IV NAUSEA AND/OR VOMITING; Start at 11:30 Morphine Sulfate (morphine) 2 mg Q4H PRN IV pain; Start 06/18/17 at 11:30 Famotidine (Pepcid Iv) 20 mg DAILY IV Last administered on 06/19/17 10:05; Admin Dose 20 MG; Start 06/19/17 at 09:00 Carvedilol (Coreg) 12.5 mg BID PO ; Start 06/19/17 at 21:00 Enalapril Maleate (Vasotec) 20 mg DAILY PO ; Start 06/20/17 at 09:00 Atorvastatin Calcium (Lipitor) 20 mg DAILY@21 PO ; Start 06/19/17 at 21:00 LAKESHA MCLEOD Jun 19, 2017 16:28
[2017-06-19] MEDS: ATORVASTATIN 20 MG TAB PO SCH (20:53)
[2017-06-20] VITALS (20 sets, daily range): BP systolic 122–170; BP diastolic 49–77; PULSE 6–81; RESP 12–21
[2017-06-20] MEDS: SOD CHLORIDE 0.9% 1,000 ML IV SCH (04:19)
[2017-06-20] MEDS: hydrALAzine 20 MG INJ IV PRN ×3 (04:19→20:24)
[2017-06-20 05:13] LABS: BASOPHILS % 0.3 % (0.0-2.0); EOSINOPHILS # 0.1 10^3/ul (0.0-0.5); HEMATOCRIT 31.3 % (37.0-47.0); HEMOGLOBIN 9.6 g/dl (12.0-16.0); LYMPHOCYTES # 1.4 10^3/ul (0.8-2.9); LYMPHOCYTES % 20.3 % (15.0-51.0); MEAN CORPUSCULAR HEMOGLOBIN 32.3 pg (29.0-33.0); MEAN CORPUSCULAR HGB CONC 30.7 g/dl (32.0-37.0); MEAN CORPUSCULAR VOLUME 105.4 fl (82.0-101.0); MEAN PLATELET VOLUME 9.3 fl (7.4-10.4); MONOCYTE # 0.6 10^3/ul (0.3-0.9); MONOCYTES % 8.3 % (0.0-11.0); NEUTROPHIL # 4.8 10^3/ul (1.6-7.5); NEUTROPHILS % 69.7 % (39.0-77.0); PLATELET COUNT 230 10^3/UL (140-415); RED BLOOD COUNT 2.97 10^6/ul (4.20-5.40); RED CELL DISTRIBUTION WIDTH 14.4 % (11.5-14.5); WHITE BLOOD COUNT 6.9 10^3/ul (4.8-10.8)
[2017-06-20 05:51] LABS: CALCIUM 7.6 mg/dl (8.4-10.2); CREATININE 1.17 mg/dl (0.44-1.00); POTASSIUM 3.9 mmol/L (3.5-5.1)
[2017-06-20 06:22] LABS: FREE T3 2.36 pg/ml (2.77-5.27)
[2017-06-20 06:36] LABS: THYROID STIMULATING HORMONE 10.3 MIU/L (0.465-4.680)
[2017-06-20] MEDS: ENALAPRIL 20 MG TAB PO SCH (08:51)
[2017-06-20] MEDS: FAMOTIDINE 20 MG INJ IV SCH (08:52)
--- NOTE | 2017-06-20 10:25 | CONS ---
Date/Time of Note Date/Time of Note DATE: 06/18/17 TIME: 22:00 Assessment/Plan Assessment/Plan Additional Assessment/Plan Date of consultation: 06/18/2017 Requesting physician: Dr. Isbell with the emergency department Consulting service: Neurosurgery This is a 81-year-old female with past medical history significant for hypertension and hypercholesterolemia who was brought by ambulance to the [facility] emergency department for acute onset of slurred speech and right-sided weakness. Neurosurgery was consulted after CT workup of the head showed a left sided basal ganglia hemorrhage. There is no reported loss of consciousness, seizures or convulsions noted. The patient's blood pressure is being kept Less than 160 for systolics. Past medical history: Please see above Past surgical history: Cholecystectomy, eye surgery Social history: The patient does not currently use tobacco, alcoholic beverages , illicit or recreational drugs according to the medical records. Review of systems: The patient denies shortness of breath, chest pain. Physical Examination: The patient is somnolent but easily arousable to voice. She wakes up and appears to be alert and oriented to person. She has a right facial droop. Pupils are equally round and reactive to light bilaterally. Extraocular movements are intact. Sensory exam is difficult to obtain because the patient at this time is not fully cooperative. Motor strength is at least 4 + out of 5 left upper and lower extremities and at least 3 out of 5 right upper and lower extremities. There is no Kaleb sign present. Deep tendon reflexes are 1+ bilateral upper and lower extremities. Pronator drift testing cannot be done because the patient is not fully cooperative. The patient has gross dysarthric speech. Imaging: The patient has received a CT of the head without contrast as well as a follow-up CT of the head within 6 hours after that shows a stable relatively small left basal ganglia/lentiform nucleus intraparenchymal hemorrhage. 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 Assessment/plan: This is an elderly female with new onset right facial droop, right hemiparesis and dysarthria related to a left basal ganglia stable small intraparenchymal hemorrhage that is likely hypertensive in nature. The patient will require close supportive care in the ICU for the next 24 hours including strict blood pressure control with systolics maintained less than 160. If the patient remains neurologically stable she can then be transferred out of the ICU to telemetry and to the [facility] floor. The bilateral relatively small supraclinoid aneurysms are most likely incidental findings and will not require acute neurosurgical intervention. However, I do recommend that the patient follow-up on an outpatient basis with interventional neuroradiology for further management. At my recommendation, neurology has also been consulted for further recommendations in regards to the patient's basal ganglia hemorrhage and further long-term recommendations to minimize the risk of recurrent ischemic and hemorrhagic strokes in this patient. MARISA OSWALD MD Jun 20, 2017 10:25
--- NOTE | 2017-06-20 11:11 | PN ---
Date/Time of Note Date/Time of Note DATE: 06/20/17 TIME: 11:06 Assessment/Plan VTE Prophylaxis VTE Prophylaxis Intervention: SCD's VTE Contraindication Reason: hemorrhagic cerebral infarction Lines/Catheters [facility] Peripheral IV Urinary Cath still in place: Yes Reason Cath still needed: other (indicate) Assessment/Plan Chief Complaint/Hosp Course 81 yo F with 1. 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 Hypertension with suboptimal control [hypertensive emergency]: resolved, now with good control 3. History of dyslipidemia 4. CKD : Stable 5. 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 6. New diagnosis of hypothyroidism PLAN: Spoke at length with both neurology as well as neurosurgery. No indication for further imaging at this time, per neurosurgery, and he continues to recommend outpatient review with interventional neuroradiologist. Neurology has cleared patient for downgrade to telemetry, after which if she remains stable possible discharge home in a day. Patient and family has been advised to stay away from NSAIDs, maintaining good blood pressure control and management, and stay close follow-up with primary care physician. Further interventions per clinical course Spoke with daughter and granddaughter in detail at bedside Problems: Subjective 24 Hr Interval Summary Free Text/Dictation Neurology was also at bedside patient was reviewed alongside neurology. Patient is doing very well, granddaughter at bedside, she is in a good mood, still no motor deficits, slurred speech improvement. Exam/Review of Systems Vital Signs Vitals Vital Signs Date Time Temp Pulse Resp B/P Pulse Ox O2 Delivery O2 Flow Rate FiO2 06/20/17 10:00 67 21 122/53 97 Room Air 06/20/17 08:00 98.5 Intake and Output 06/19/17 06/19/17 06/20/17 15:00 23:00 07:00 Intake Total 410 ml 580 ml 420 ml Output Total 150 ml 350 ml 275 ml Balance 260 ml 230 ml 145 ml Exam Constitutional: , alert and oriented No distress Head: normocephalic, Eyes: PERRL, No icteric ENMT: mucosa pink and moist, No intubated, facial asymmetry noted with deviation of the angle of the mouth to the right Neck: supple Respiratory: clear to auscultation, diminished breath sounds Cardiovascular: nl pulses, regular rate and rhythm, No murmurs/extra sounds Gastrointestinal: bowel sounds, non-tender, soft Neurological: No confused, No focal weakness, No nl speech Skin: No rash or lesions Results Result Diagram: 06/20/178 06/20/178 Results 24 hrs Laboratory Tests Test 06/20/17 04:38 White Blood Count 6.9 Red Blood Count 2.97 L Hemoglobin 9.6 L Hematocrit 31.3 L Mean Corpuscular Volume 105.4 H Mean Corpuscular Hemoglobin 32.3 Mean Corpuscular Hemoglobin Concent 30.7 L Red Cell Distribution Width 14.4 Platelet Count 230 Mean Platelet Volume 9.3 Neutrophils % 69.7 Lymphocytes % 20.3 Monocytes % 8.3 Eosinophils % 1.0 Basophils % 0.3 Nucleated Red Blood Cells % 0.0 Neutrophils # 4.8 Lymphocytes # 1.4 Monocytes # 0.6 Eosinophils # 0.1 Basophils # 0.0 Nucleated Red Blood Cells # 0.0 Sodium Level 140 Potassium Level 3.9 Chloride Level 117 H Carbon Dioxide Level 20 L Anion Gap 7 L Blood Urea Nitrogen 24 H Creatinine 1.17 H Glucose Level 90 Calcium Level 7.6 L Thyroid Stimulating Hormone (TSH) 10.300 H Free Thyroxine 0.62 L Free Triiodothyronine (T3) pg/mL 2.36 L Medications Medications Current Medications Sodium Chloride (NS) 1,000 ml @ 60 mls/hr [id number] IV Last administered on 04:19; Admin Dose 60 MLS/HR; Start 06/18/17 at 11:30 Hydralazine HCl (Apresoline) 10 mg Q6H PRN IV sbp>140mmhg Last administered on 06/20/17 04:19; Admin Dose 10 MG; Start 06/18/17 at 11:30 Ondansetron HCl (Zofran Inj) 4 mg Q6H PRN IV NAUSEA AND/OR VOMITING; Start at 11:30 Morphine Sulfate (morphine) 2 mg Q4H PRN IV pain; Start 06/18/17 at 11:30 Famotidine (Pepcid Iv) 20 mg DAILY IV Last administered on 06/20/17 08:52; Admin Dose 20 MG; Start 06/19/17 at 09:00 Carvedilol (Coreg) 12.5 mg BID PO Last administered on 06/20/17 08:52; Admin Dose 12.5 MG; Start 06/19/17 at 21:00 Enalapril Maleate (Vasotec) 20 mg DAILY PO Last administered on 06/20/17 08: 51; Admin Dose 20 MG; Start 06/20/17 at 09:00 Atorvastatin Calcium (Lipitor) 20 mg DAILY@21 PO Last administered on 20:53; Admin Dose 20 MG; Start 06/19/17 at 21:00 CLEM ROMANO Jun 20, 2017 11:11
--- NOTE | 2017-06-20 12:06 | CONS ---
Date/Time of Note Date/Time of Note DATE: 06/20/17 TIME: 12:04 Consult Date/Type/Reason Admit Date/Time Jun 18, 2017 at 11:05 Initial Consult Date 06/19/17 Type of Consultation: Neurology Reason for Consultation ICH Ordering Provider: CLEM ROMANO Subjective dysarthria improving rt facial improving tolerating pureed diet well Objective Vital Signs Date Time Temp Pulse Resp B/P Pulse Ox O2 Delivery O2 Flow Rate FiO2 06/20/17 10:00 67 21 122/53 97 Room Air 06/20/17 08:00 98.5 Intake and Output 06/19/17 06/19/17 06/20/17 14:59 22:59 06:59 Intake Total 360 ml 570 ml 480 ml Output Total 150 ml 315 ml 310 ml Balance 210 ml 255 ml 170 ml Exam awake alert oriented x3 pitcairn islander speaking no aphasia follows commands well CN: GINGER, VFF EOMI no nystagmus right facial droop Motor; no drift in extremities Sensory intact to DSS Results/Medications Result Diagram: 06/20/17 0438 06/20/17 0438 Results 24 hrs Laboratory Tests Test 06/20/17 04:38 White Blood Count 6.9 Red Blood Count 2.97 L Hemoglobin 9.6 L Hematocrit 31.3 L Mean Corpuscular Volume 105.4 H Mean Corpuscular Hemoglobin 32.3 Mean Corpuscular Hemoglobin Concent 30.7 L Red Cell Distribution Width 14.4 Platelet Count 230 Mean Platelet Volume 9.3 Neutrophils % 69.7 Lymphocytes % 20.3 Monocytes % 8.3 Eosinophils % 1.0 Basophils % 0.3 Nucleated Red Blood Cells % 0.0 Neutrophils # 4.8 Lymphocytes # 1.4 Monocytes # 0.6 Eosinophils # 0.1 Basophils # 0.0 Nucleated Red Blood Cells # 0.0 Sodium Level 140 Potassium Level 3.9 Chloride Level 117 H Carbon Dioxide Level 20 L Anion Gap 7 L Blood Urea Nitrogen 24 H Creatinine 1.17 H Glucose Level 90 Calcium Level 7.6 L Thyroid Stimulating Hormone (TSH) 10.300 H Free Thyroxine 0.62 L Free Triiodothyronine (T3) pg/mL 2.36 L Medications Current Medications Hydralazine HCl (Apresoline) 10 mg Q6H PRN IV sbp>140mmhg Last administered on 06/20/17t 04:19; Admin Dose 10 MG; Start 06/18/17 at 11:30 Ondansetron HCl (Zofran Inj) 4 mg Q6H PRN IV NAUSEA AND/OR VOMITING; Start at 11:30 Morphine Sulfate (morphine) 2 mg Q4H PRN IV pain; Start 06/18/17 at 11:30 Famotidine (Pepcid Iv) 20 mg DAILY IV Last administered on 06/20/17 08:52; Admin Dose 20 MG; Start 06/19/17 at 09:00 Carvedilol (Coreg) 12.5 mg BID PO Last administered on 06/20/17 08:52; Admin Dose 12.5 MG; Start 06/19/17 at 21:00 Enalapril Maleate (Vasotec) 20 mg DAILY PO Last administered on 06/20/17 08: 51; Admin Dose 20 MG; Start 06/20/17 at 09:00 Atorvastatin Calcium (Lipitor) 20 mg DAILY@21 PO Last administered on 20:53; Admin Dose 20 MG; Start 06/19/17 at 21:00 Assessment/Plan Chief Complaint/Hosp Course 81 yo female with HTN, HLD p/w acute 14 mm left basal ganglia hemorrhage admitted to ICU for closer monitoring. Recommend: avoid antiplatelets, NSAIDS SBP less than 140/90 supervisor intermediates goal continue neuro checks per unit protocol plan for downgrade to med/surg incidental aneurysm does not require intervention at this time may monitor as outpatient LDL and HBA1C are at target avoid overly sedating medications, tylenol prn CERDA DVT ppx SCD PT/OT/Speech d/w family at bedside Problems: JOAO SUAZO MD Jun 20, 2017 12:06
[2017-06-20] MEDS: ATORVASTATIN 20 MG TAB PO SCH (20:23)
[2017-06-21] VITALS (8 sets, daily range): BP systolic 121–157; BP diastolic 58–71; PULSE 59–67; RESP 16–20
[2017-06-21 06:38] LABS: BASOPHILS % 0.4 % (0.0-2.0); EOSINOPHILS # 0.1 10^3/ul (0.0-0.5); EOSINOPHILS % 1.6 % (0.0-7.0); HEMATOCRIT 28.7 % (37.0-47.0); HEMOGLOBIN 9.2 g/dl (12.0-16.0); LYMPHOCYTES # 1.3 10^3/ul (0.8-2.9); LYMPHOCYTES % 23.8 % (15.0-51.0); MEAN CORPUSCULAR HEMOGLOBIN 33.3 pg (29.0-33.0); MEAN CORPUSCULAR HGB CONC 32.1 g/dl (32.0-37.0); MEAN PLATELET VOLUME 9.6 fl (7.4-10.4); MONOCYTE # 0.4 10^3/ul (0.3-0.9); NEUTROPHIL # 3.6 10^3/ul (1.6-7.5); PLATELET COUNT 200 10^3/UL (140-415); RED BLOOD COUNT 2.76 10^6/ul (4.20-5.40); RED CELL DISTRIBUTION WIDTH 14.2 % (11.5-14.5); WHITE BLOOD COUNT 5.5 10^3/ul (4.8-10.8)
[2017-06-21 07:15] LABS: CALCIUM 7.5 mg/dl (8.4-10.2); CREATININE 1.14 mg/dl (0.44-1.00)
[2017-06-21] MEDS: ENALAPRIL 20 MG TAB PO SCH (08:59)
[2017-06-21] MEDS ORDERED: FAMOTIDINE 20 MG TAB PO SCH (09:00)
[2017-06-21] MEDS ORDERED: LEVOTHYROXINE 25 MCG TAB PO SCH (10:00)
[2017-06-21] MEDS ORDERED: INFLUENZA VIRUS VACCINE 0.5 ML SYG IM* ONE (11:00)
[2017-06-21] MEDS ORDERED: LEVO25TA53 PO (12:28)
[2017-06-21] MEDS ORDERED: AMLODIPINE 5 MG TAB PO SCH (12:30)
--- NOTE | 2017-06-21 12:32 | DS ---
Date/Time of Note Date/Time of Note DATE: 06/21/17 TIME: 12:29 Discharge Summary Admission/Discharge Info Admit Date/Time Jun 18, 2017 at 11:05 Discharge Date/Time 06/21/17 Patient Condition: Stable Consults Neurosurgery: Isaac Neurology: [place] Hx of Present Illness This is an 81-year-old female who was brought into the emergency room today via ambulance because of new onset right-sided weakness and slurred speech as well as deviation of the angle of her mouth to the right. Periparotid the patient started having symptoms at about 715 this morning and prior to an hour prior to that patient was said to have been normal. Emergency room evaluation revealed the presence of a left basal ganglia hemorrhagic stroke on CT scan of the brain and the patient is being admitted to the intensive care unit for further monitoring and management. No other history is unobtainable at this time because of the patient's slurred speech and mild aphasia. Hospital Course 81 yo F with 1. 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 Hypertension with suboptimal control [hypertensive emergency]: resolved, now with good control 3. History of dyslipidemia 4. CKD : Stable 5. 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 6. New diagnosis of hypothyroidism PLAN: Spoke at length with both neurology as well as neurosurgery. No indication for further imaging at this time, per neurosurgery, and he continues to recommend outpatient review with interventional neuroradiologist. Neurology has cleared patient for downgrade to telemetry, after which if she remains stable possible discharge home in a day. Patient and family has been advised to stay away from NSAIDs, maintaining good blood pressure control and management, and stay close follow-up with primary care physician. Further interventions per clinical course Spoke with daughter and granddaughter in detail at bedside Home Meds Reported Medications Epoetin Chito (Procrit) 10,000 Unit/1 Ml Vial, [address] UNIT IJ WEEKLY, VIAL 06/18/17 Ferrous Sulfate* (Ferrous Sulfate*) 325 Mg Tabec, 325 MG PO BID, TAB 06/18/17 Amlodipine Besylate* (Norvasc*) 5 Mg Tablet, 5 MG PO DAILY, TAB 06/18/17 Carvedilol* (Carvedilol*) 12.5 Mg Tablet, 12.5 MG PO BID, #60 TAB 06/18/17 Cyanocobalamin* (Vitamin B12*) 100 Mcg Tab, 100 MCG PO DAILY, TAB 06/18/17 Simvastatin* (Zocor*) 40 Mg Tablet, 40 MG PO QHS, #30 TAB 06/18/17 Acetaminophen* (Tylenol*) 500 Mg Tab, 500 MG PO Q4H Y for MILD PAIN LEVEL 1-3, TAB 06/18/17 Loratadine* (Loratadine*) 10 Mg Tablet, 10 MG PO DAILY, #30 TAB 06/18/17 Omeprazole* (Omeprazole*) 20 Mg Capsule.dr, 20 MG PO AC BREAKFAST, #30 CAP 06/18/17 Furosemide* (Furosemide*) 20 Mg Tablet, 20 MG PO DAILY Y for LEG SWELLING, #60 TAB 06/18/17 Potassium Chloride* (Klor-Con*) 20 Meq Tabsr, 10 MEQ PO DAILY Y for SWELLING OF LEGS, TAB.SA 06/18/17 Enalapril Maleate* (Enalapril Maleate*) 20 Mg Tablet, 20 MG PO BID, TAB HOLD FOR SBP LESS THAN 110 AND PULSE RATE LESS THAN 52 06/18/17 Clonidine Patch (CLONIDINE PATCH) 0.2 Mg/24 Hr Patch, 1 PATCH.WK TD Q7D, #4 PATCH.WK 06/18/17 Dicyclomine Hcl* (Bentyl*) 10 Mg Capsule, 20 MG PO BID, CAP 06/18/17 Follow-up Plan Is being discharged home with home health for physical therapy as well as speech therapy Followup with your primary doctor within the next 1-2 weeks. If you don't have one please let someone know, we can give you resources that may help you pick one. You may call Dr Taqueria Hardy's office. he's accepting new patients Name, Degree: Taqueria Hardy MD Specialty: Internal Medicine Comments: Office Address: [address] [place] [address] Office Office You may also call your insurance company to assign one to you. Review your medication list with your nurse before leaving and if you need new prescriptions please let your nurse know. I may have made changes to your home medications or given you new prescriptions, please let your primary doctor know as well. Stay compliant with your medications and report any side effects to your PCP or pharmacist. Return to the ER if you have any concerns and cannot reach your doctors or call your insurance company, they usually have a nurse that can help you. Primary Care Provider Care Physician No Primary Time spent on discharge: > 30 minutes Pending Labs Laboratory Tests Test 06/21/17 06:00 White Blood Count 5.510^3/ul (4.8-10.8) Red Blood Count 2.7610^6/ul (4.20-5.40) Hemoglobin 9.2g/dl (12.0-16.0) Hematocrit 28.7% (37.0-47.0) Mean Corpuscular Volume 104.0fl (82.0-101.0) Mean Corpuscular Hemoglobin 33.3pg (29.0-33.0) Mean Corpuscular Hemoglobin Concent 32.1g/dl (32.0-37.0) Red Cell Distribution Width 14.2% (11.5-14.5) Platelet Count 76728^3/UL (140-415) Mean Platelet Volume 9.6fl (7.4-10.4) Neutrophils % 66.0% (39.0-77.0) Lymphocytes % 23.8% (15.0-51.0) Monocytes % 8.0% (0.0-11.0) Eosinophils % 1.6% (0.0-7.0) Basophils % 0.4% (0.0-2.0) Nucleated Red Blood Cells % 0.0/100WBC (0.0-0.0) Neutrophils # 3.610^3/ul (1.6-7.5) Lymphocytes # 1.310^3/ul (0.8-2.9) Monocytes # 0.410^3/ul (0.3-0.9) Eosinophils # 0.110^3/ul (0.0-0.5) Basophils # 0.010^3/ul (0.0-0.1) Nucleated Red Blood Cells # 0.010^3/ul (0.0-0.0) Sodium Level 139mmol/L (135-144) Potassium Level 4.0mmol/L (3.5-5.1) Chloride Level 115mmol/L (97-110) Carbon Dioxide Level 21mmol/L (21-31) Anion Gap 7 (8-16) Blood Urea Nitrogen 23mg/dl (7-20) Creatinine 1.14mg/dl (0.44-1.00) Glucose Level 85mg/dl (70-220) Calcium Level 7.5mg/dl (8.4-10.2) CLEM ROMANO Jun 21, 2017 12:32
--- NOTE | 2017-06-21 12:35 | PDOCDIS ---
Discharge Instructions DIAGNOSIS Discharge Diagnosis Acute L basal ganglia hemorrhagic stroke CONDITION Patient Condition: Stable HOME CARE INSTRUCTIONS: Special Diet: Puree diet ACTIVITY: Activity Restrictions: Slowly Increase Activity Rest between Activity Avoid Heavy Housework Activity Restrictions Comment: Home health for Physical and Speech therapy FOLLOW UP/APPOINTMENTS Follow-up Plan Is being discharged home with home health for physical therapy as well as speech therapy Followup with your primary doctor within the next 1-2 weeks. If you don't have one please let someone know, we can give you resources that may help you pick one. You may call Dr Taqueria Hardy's office. he's accepting new patients Name, Degree: Taqueria Hardy MD Specialty: Internal Medicine Comments: Office Address: [address] [place] [address] [place] [id number] Office Office You may also call your insurance company to assign one to you. Review your medication list with your nurse before leaving and if you need new prescriptions please let your nurse know. I may have made changes to your home medications or given you new prescriptions, please let your primary doctor know as well. Stay compliant with your medications and report any side effects to your PCP or pharmacist. Return to the ER if you have any concerns and cannot reach your doctors or call your insurance company, they usually have a nurse that can help you. REFERRALS Other Referrals Please call Dr Onofre's office for followup: Name, Degree : Edelmira Onofre MD Specialty : Neurology Office Address [facility]. [address] [facility], [address] [place] [address] Office Office OTHER ORDERS: Other Orders: 1. Avoid NSAIDS and aspirin for now 2. Ask your PCP or neurologist for possible Interventional Neuroradiology intervention if they feel it's warranted./ CLEM ROMANO Jun 21, 2017 12:35
--- NOTE | 2017-06-21 12:38 | DS ---
Date/Time of Note Date/Time of Note DATE: 06/21/17 TIME: 12:36 Discharge Summary Admission/Discharge Info Admit Date/Time Jun 18, 2017 at 11:05 Discharge Date/Time Discharge Diagnosis 81 yo F with 1. 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 Hypertension now with good control 3. History of dyslipidemia 4. CKD : Stable 5. 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 6. New diagnosis of hypothyroidism . Patient Condition: Stable Consults Neurology: [place] Neurosurgery: Isaac . Hx of Present Illness This is an 81-year-old female who was brought into the emergency room today via ambulance because of new onset right-sided weakness and slurred speech as well as deviation of the angle of her mouth to the right. Periparotid the patient started having symptoms at about 715 this morning and prior to an hour prior to that patient was said to have been normal. Emergency room evaluation revealed the presence of a left basal ganglia hemorrhagic stroke on CT scan of the brain and the patient is being admitted to the intensive care unit for further monitoring and management. No other history is unobtainable at this time because of the patient's slurred speech and mild aphasia. Hospital Course 81 yo F with who presented to the emergency room with slurred speech and right- sided facial weakness and right-sided motor deficits that resolved and was found to have an acute left hemorrhagic basal ganglia stroke. She was admitted by neurosurgery, no surgical intervention was deemed necessary. She was observed in the intensive care unit for at least 48 hours. She had a repeat CT after 24 hours that showed no further progression in the bleed, and at this point neurosurgery determined that she did not need any further workup. However that incident out right and left posterior projection aneurysms were seen on CTA arising from the carotid arteries, and both neurology and neurosurgery agreed that these these were likely incidental finding and just needed serial evaluation and if possible but not mandatory outpatient interventional neuroradiology referral. Her blood pressure was kept strictly under control with a history goal systolic blood pressure 140 while in the ICU, and we attempted to continue this even while she was on the floor. She has done very well and currently other than has speech difficulties, she has no motor deficits even though sometimes she complains of numbness on the right side. She is requesting to be discharged home to her family and at this time I do not see any contraindication. The goal is to discharge home with home health and speech therapy as well as physical therapy for further and continued management and workup by her primary care physician. This has been coming to get in detail with patient and her daughter questions have been answered and they have verbalized understanding and agreement with the plan. . Home Meds Active Scripts Levothyroxine Sodium* (Levothyroxine Sodium*) 25 Mcg Tablet, 25 MCG PO DAILY@06 for 30 Days, #30 TAB 2 Refills Prov:CLEM ROMANO 06/21/17 Reported Medications Ferrous Sulfate* (Ferrous Sulfate*) 325 Mg Tabec, 325 MG PO BID, TAB 06/18/17 Amlodipine Besylate* (Norvasc*) 5 Mg Tablet, 5 MG PO DAILY, TAB 06/18/17 Carvedilol* (Carvedilol*) 12.5 Mg Tablet, 12.5 MG PO BID, #60 TAB 06/18/17 Cyanocobalamin* (Vitamin B12*) 100 Mcg Tab, 100 MCG PO DAILY, TAB 06/18/17 Simvastatin* (Zocor*) 40 Mg Tablet, 40 MG PO QHS, #30 TAB 06/18/17 Acetaminophen* (Tylenol*) 500 Mg Tab, 500 MG PO Q4H Y for MILD PAIN LEVEL 1-3, TAB 06/18/17 Loratadine* (Loratadine*) 10 Mg Tablet, 10 MG PO DAILY, #30 TAB 06/18/17 Omeprazole* (Omeprazole*) 20 Mg Capsule.dr, 20 MG PO AC BREAKFAST, #30 CAP 06/18/17 Furosemide* (Furosemide*) 20 Mg Tablet, 20 MG PO DAILY Y for LEG SWELLING, #60 TAB 06/18/17 Potassium Chloride* (Klor-Con*) 20 Meq Tabsr, 10 MEQ PO DAILY Y for SWELLING OF LEGS, TAB.SA 06/18/17 Enalapril Maleate* (Enalapril Maleate*) 20 Mg Tablet, 20 MG PO BID, TAB HOLD FOR SBP LESS THAN 110 AND PULSE RATE LESS THAN 52 06/18/17 Clonidine Patch (CLONIDINE PATCH) 0.2 Mg/24 Hr Patch, 1 PATCH.WK TD Q7D, #4 PATCH.WK 06/18/17 Discontinued Reported Medications Epoetin Chito (Procrit) 10,000 Unit/1 Ml Vial, [address]207 UNIT IJ WEEKLY, VIAL 06/18/17 Dicyclomine Hcl* (Bentyl*) 10 Mg Capsule, 20 MG PO BID, CAP 06/18/17 Follow-up Plan Is being discharged home with home health for physical therapy as well as speech therapy Followup with your primary doctor within the next 1-2 weeks. If you don't have one please let someone know, we can give you resources that may help you pick one. You may call Dr Taqueria Hardy's office. he's accepting new patients Name, Degree: Taqueria Hardy MD Specialty: Internal Medicine Comments: Office Address: [address] [place], [place] [id number] Office Office You may also call your insurance company to assign one to you. Review your medication list with your nurse before leaving and if you need new prescriptions please let your nurse know. I may have made changes to your home medications or given you new prescriptions, please let your primary doctor know as well. Stay compliant with your medications and report any side effects to your PCP or pharmacist. Return to the ER if you have any concerns and cannot reach your doctors or call your insurance company, they usually have a nurse that can help you. Primary Care Provider Care Physician No Primary Time spent on discharge: > 30 minutes Pending Labs Laboratory Tests Test 06/21/17 06:00 White Blood Count 5.510^3/ul (4.8-10.8) Red Blood Count 2.7610^6/ul (4.20-5.40) Hemoglobin 9.2g/dl (12.0-16.0) Hematocrit 28.7% (37.0-47.0) Mean Corpuscular Volume 104.0fl (82.0-101.0) Mean Corpuscular Hemoglobin 33.3pg (29.0-33.0) Mean Corpuscular Hemoglobin Concent 32.1g/dl (32.0-37.0) Red Cell Distribution Width 14.2% (11.5-14.5) Platelet Count 13313^3/UL (140-415) Mean Platelet Volume 9.6fl (7.4-10.4) Neutrophils % 66.0% (39.0-77.0) Lymphocytes % 23.8% (15.0-51.0) Monocytes % 8.0% (0.0-11.0) Eosinophils % 1.6% (0.0-7.0) Basophils % 0.4% (0.0-2.0) Nucleated Red Blood Cells % 0.0/100WBC (0.0-0.0) Neutrophils # 3.610^3/ul (1.6-7.5) Lymphocytes # 1.310^3/ul (0.8-2.9) Monocytes # 0.410^3/ul (0.3-0.9) Eosinophils # 0.110^3/ul (0.0-0.5) Basophils # 0.010^3/ul (0.0-0.1) Nucleated Red Blood Cells # 0.010^3/ul (0.0-0.0) Sodium Level 139mmol/L (135-144) Potassium Level 4.0mmol/L (3.5-5.1) Chloride Level 115mmol/L (97-110) Carbon Dioxide Level 21mmol/L (21-31) Anion Gap 7 (8-16) Blood Urea Nitrogen 23mg/dl (7-20) Creatinine 1.14mg/dl (0.44-1.00) Glucose Level 85mg/dl (70-220) Calcium Level 7.5mg/dl (8.4-10.2) CLEM ROMANO Jun 21, 2017 12:38
== END 2017-06-21 16:09 | disposition home health service (06) | DRG 65 ==
LOC: E/R 09:35 → ICU 11:05 → MS4 06-20 17:51
PROVIDERS: ADMIT Family Medicine; ATTEND Family Medicine
DX: I61.0 Nontraumatic intracerebral hemorrhage in hemisphere, subcortical (principal); G81.91 Hemiplegia, unspecified affecting right dominant side; I72.0 Aneurysm of carotid artery; I16.1 Hypertensive emergency; I12.9 Hypertensive chronic kidney disease with stage 1 through stage 4 chronic kidney disease, or unspecified chronic kidney disease; N18.9 Chronic kidney disease, unspecified; R47.1 Dysarthria and anarthria; R29.810 Facial weakness; E78.5 Hyperlipidemia, unspecified; E03.9 Hypothyroidism, unspecified; Z87.891 Personal history of nicotine dependence; Z90.49 Acquired absence of other specified parts of digestive tract
CPT/HCPCS: 36415; 70450; 70496; 70498; 71010; 80048; 80053; 80061; 80076; 80307; 81001; 82550; 82553; 83036; 83735; 84439; 84443; 84481; 84484; 85025; 85610; 85730; 87081; 90686; 92523; 92526; 92610; 93005; 96374; 97110; 97116; 97162; 97530; J1940; J0360; J3475; J3480; J7030; Q9967